=== PATIENT | female | born 1995 | race Hispanic/Latino ===

== ENCOUNTER 2020-08-25 11:05 | Emergency (ER) | payer SELFPAY ==
--- NOTE | 2020-08-25 11:39 | RAD ---
Exam: Chest one view HISTORY:Shortness of breath Comparison: None FINDINGS: Cardiac silhouette:There is cardiomegaly. There are postoperative sternotomy changes. Aorta: Unremarkable Pulmonary vessels: Normal Costophrenic angles: Clear LUNGS: There appears to be postsurgical change in the right hemithorax. Dense consolidation along the right paratracheal region which may represent postsurgical change. Post obstructive atelectasis or pneumonia cannot be excluded. Correlation with surgical history and comparison with prior imaging wou ld be beneficial. If prior imaging is not available, consider CT. Pneumothorax: None Osseous abnormalities: There appear to be chronic changes along the posterior right hemithorax. There does appear to be rightward curvature the upper thoracic spine. IMPRESSION: 1. Postsurgical changes in the right hemithorax. There is dense consolidation of what is presumed to be the right upper lobe. There is rightward curvature of the thoracic spine. Consolidation may represent postsurgical change. Post obstructive atelectasis and/or pneumonia cannot be excluded. Wyatt tional imaging if clinically warranted.
[2020-08-25 11:44] LABS: #Basophils 0.1 thou/uL (0.0-0.2); #Monocytes 0.4 thou/uL (0.11-0.59); #Neutrophils 2.8 thou/uL (1.40-6.50); %Basophils 1.4 % (0.0-1.0); %Lymphocytes 23.7 % (21.0-51.0); Hemoglobin 14.4 g/dL (12.0-16.0); Mean Corpuscular HGB CONC 32.2 g/dL (32.0-36.0); Mean Corpuscular Hemoglobin 25.5 pg (27.0-31.0); Mean Corpuscular Volume 79.1 fL (78.0-98.0); Mean Platelet Volume 9.7 fL (7.4-10.4); Platelet Count 193 thou/uL (130-400); Red Blood Cell (RBC) Count 5.65 mill/uL (4.20-5.40); White Blood Cell (WBC) Count 4.4 thou/uL (4.8-10.8)
[2020-08-25 12:04] LABS: ALT (SGPT) 20 U/L (8-55); AST (SGOT) 31 U/L (5-34); Albumin 4.6 g/dL (3.5-5.0); Alkaline Phosphatase 65 U/L (40-110); Anion Gap 16 mmol/L (10-20); BUN (Urea Nitrogen) 8 mg/dL (7.0-18.7); Bilirubin, Total 0.4 mg/dL (0.2-1.2); Calc. Creatinine Clearance 0 mL/min (70-130); Calcium 9.2 mg/dL (7.8-10.44); Carbon Dioxide 19 mmol/L (22-29); Chloride 107 mmol/L (98-107); Globulin 3.6 g/dL (2.4-3.5); Glucose 85 mg/dL (70-105); Potassium 4.4 mmol/L (3.5-5.1); Protein, Total 8.2 g/dL (6.0-8.3); Sodium 138 mmol/L (136-145)
[2020-08-25 12:50] LABS: Bacteria/HPF None Seen HPF (None Seen); Bilirubin Negative (Negative); Blood, Urine Negative (Negative); Clarity Clear (Clear); Glucose, Urine (Dipstick) Normal (Negative); Ketone, Urine 10 mg/dL (Negative); Leukocyte 75 Leu/uL (Negative); Mucous/LPF 1+ LPF (<2+); Nitrite Negative (Negative); Protein, Urine (Dipstick) 20 mg/dL (Neg-Trace); RBC/HPF 0-3 HPF (0-3); Specific Gravity, Urine 1.026 (1.002-1.036); Squamous Epithelial 0-3 HPF (0-3); Urobilinogen Normal mg/dL (Less than 2); WBC/HPF 0-3 HPF (0-3)
[2020-08-25 12:53] LABS: Pregnancy Test - Urine (BHCG) Negative (Negative); Pregu Control Background? CLEAR/WHITE (CLR/WHITE); Pregu Control Bar Appear? YES (CONTROL BAR); Specific Gravity 1.026 (1.002-1.036)
[2020-08-25] MEDS ORDERED: Iopamidol-370 76% 500 ML 1 ML ONE (13:27)
[2020-08-25] MEDS ORDERED: Ketorolac Tromethamine 30 MG/ML VIAL ONE (14:09)
--- NOTE | 2020-08-25 14:57 | CT ---
CTA Angio Chest W WO Con 08/25/2020 1:30 PM Indication: History of congenital heart disease with multiple surgeries with substernal chest pain a nd shortness of breath Technique: Multiple CTA images were obtained of the thorax with IV contrast. 3-D rendering: MIP emilia nstructed images were created and reviewed. Comparison: No relevant prior studies available. Findings: Pulmonary arteries: The right main pulmonary artery is fed via a conduit from the right superior rosaura a cava. The left pulmonary artery is fed via the inferior vena cava and a conduit from the left brachiocephalic vein. The left pulmonary artery is not opacified due to the contrast being injected w ithin the right upper extremity. There is contrast and blood mixing in the right pulmonary arterial tree makes evaluation for PE difficult. Heart and Aorta: There is an enlarged left atrium that does appear to communicate with a prominent m idline left ventricle. There is a diminutive right ventricle with a ventricular septal defect. The ascending aorta is ectatic measuring 4.1 cm. The right and left main coronary arteries originate from the right aortic cusp on image 31 of series 3. These appear to opacify normally. There are midline sternotomy changes. Mediastinum:No enlarged lymph nodes postoperative changes above Lungs:The lungs are clear. No secondary signs for PE is evident. No pulmonary infarction or hemorrhag e is demonstrated. Pleural space: Clear. Upper Abdomen: There is normal orientation within the upper abdomen without evidence of situs invers us. No acute abnormality is evident. 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 Ther e is an additional butterfly vertebra at T10. There is dextro scoliosis of the upper thoracic spine. Soft tissues:No abnormality. Other findings:None. Impression: 1. Findings of congenital heart disease with postoperative correction. The right main pulmonary arter y is fed via conduit from the right superior vena cava whereas the left pulmonary artery is fed via a conduit from the inferior vena cava and left brachiocephalic vein. The contrast opacification withi n the right main pulmonary artery does mixed with unopacified blood making identification of acute pulmonary embolus difficult. There is no opacification of the left main pulmonary artery due to the i njection being within the right upper extremity. There are no secondary signs to suggest presence of pulmonary embolus related to pulmonary hemorrhage, pulmonary infarction or pleural effusion. Recom mend cardiology consultation and consideration for echocardiography with possible improved visualization of the pulmonary arterial outflow tract. Alternatively, catheterization and digital sub traction imaging may be helpful. Possibly nuclear medicine perfusion only evaluation may be helpful for risk stratification. Findings were discussed with Dr. Hickey At 2:45 PM on August 25, 2020. 2. Congenital scoliosis of the thoracic spine.
== END 2020-08-25 15:03 | disposition home or self-care (01) ==
LOC: ERS 11:05
DX: R07.2 Precordial pain (principal); E03.9 Hypothyroidism, unspecified; Z79.899 Other long term (current) drug therapy
CPT/HCPCS: 71045; 71275; 80053; 81003; 81015; 81025; 84484; 85025; 85379; 93005; 94760; 96374; J1885; Q9967

== ENCOUNTER 2021-02-08 09:11 | Emergency (ER) | payer OTHER ==
[2021-02-08] MEDS ORDERED: Morphine 4 MG/ML VIAL ONE (09:29)
[2021-02-08] MEDS ORDERED: Ondansetron PF 4 MG/2 ML Vial ONE (09:29)
[2021-02-08 09:48] LABS: #Eosinphils 0.1 thou/uL (0.0-0.7); #Lymphocytes 1.1 thou/uL (1.20-3.40); #Monocytes 0.3 thou/uL (0.11-0.59); #Neutrophils 2.6 thou/uL (1.40-6.50); %Basophils 0.2 % (0.0-1.0); %Eosinophils 1.9 % (0.0-10.0); %Lymphocytes 27.4 % (21.0-51.0); %Monocytes 6.5 % (0.0-10.0); %Neutrophils 64.1 % (42.0-75.0); Hemoglobin 12.5 g/dL (12.0-16.0); Mean Corpuscular HGB CONC 32.3 g/dL (32.0-36.0); Mean Corpuscular Hemoglobin 25.5 pg (27.0-31.0); Mean Corpuscular Volume 78.9 fL (78.0-98.0); Mean Platelet Volume 8.9 fL (7.4-10.4); Platelet Count 198 thou/uL (130-400); RBC Distribution Width 13.1 % (11.5-14.5); Red Blood Cell (RBC) Count 4.88 mill/uL (4.20-5.40)
[2021-02-08 11:36] LABS: Bilirubin Negative (Negative); Blood, Urine Large (Negative); Glucose, Urine (Dipstick) Negative (Negative); Ketone, Urine Negative (Negative); Leukocyte Negative (Negative); Nitrite Negative (Negative); Protein, Urine (Dipstick) Negative (Neg-Trace); Urobilinogen 0.2 mg/dL (Less than 2); pH, Urine 5.5 (5.0-9.0)
[2021-02-08 11:40] LABS: Clarity Hazy (Clear); Specific Gravity, Urine 1.035 (1.002-1.036)
[2021-02-08 11:41] LABS: Pregnancy Test - Urine (BHCG) Negative (Negative); Pregu Control Background? CLEAR/WHITE (CLR/WHITE); Pregu Control Bar Appear? YES (CONTROL BAR); Specific Gravity 1.035 (1.002-1.036)
[2021-02-08 11:43] LABS: Bacteria/HPF Rare-Few HPF (None Seen)
[2021-02-08] MEDS ORDERED: Ketorolac Tromethamine 30 MG/ML VIAL ONE (13:53)
[2021-02-11 15:17] LABS: Chlamydia by PCR Not Detected (NotDetected); GC by PCR Not Detected (NotDetected)
== END 2021-02-08 14:25 | disposition home or self-care (01) ==
LOC: ERS 09:11
DX: N83.202 Unspecified ovarian cyst, left side (principal); N92.0 Excessive and frequent menstruation with regular cycle; E03.9 Hypothyroidism, unspecified; Z79.899 Other long term (current) drug therapy; Z79.82 Long term (current) use of aspirin
CPT/HCPCS: 76856; 81003; 81015; 81025; 85025; 87491; 87591; 93976; 96374; 96375; J1885; J2270; J2405

== ENCOUNTER 2021-02-25 23:40 | Emergency (ER) | payer OTHER | END 2021-02-26 00:26 | disposition home or self-care (01) | LOC: ERS 23:40 | DX: S60.444A External constriction of right ring finger, initial encounter (principal); R60.0 Localized edema; E03.9 Hypothyroidism, unspecified; W49.04XA Ring or other jewelry causing external constriction, initial encounter | CPT/HCPCS: 99283 ==

== ENCOUNTER 2021-08-17 12:11 | Observation (INO) | payer OTHER ==
[2021-08-17 12:53] LABS: #Eosinphils 0.1 thou/uL (0.0-0.7); #Monocytes 0.3 thou/uL (0.11-0.59); #Neutrophils 3.2 thou/uL (1.40-6.50); %Basophils 0.1 % (0.0-1.0); %Eosinophils 1.2 % (0.0-10.0); %Lymphocytes 22.1 % (21.0-51.0); %Monocytes 7.4 % (0.0-10.0); %Neutrophils 69.2 % (42.0-75.0); Hemoglobin 12.6 g/dL (12.0-16.0); Mean Corpuscular Hemoglobin 25.8 pg (27.0-31.0); Mean Corpuscular Volume 78.1 fL (78.0-98.0); Mean Platelet Volume 9.2 fL (7.4-10.4); Platelet Count 188 thou/uL (130-400); RBC Distribution Width 13.7 % (11.5-14.5); Red Blood Cell (RBC) Count 4.88 mill/uL (4.20-5.40); White Blood Cell (WBC) Count 4.6 thou/uL (4.8-10.8)
[2021-08-17 13:12] LABS: ALT (SGPT) 15 U/L (8-55); AST (SGOT) 18 U/L (5-34); Albumin 4.2 g/dL (3.5-5.0); Alkaline Phosphatase 66 U/L (40-110); Anion Gap 12 mmol/L (10-20); BUN (Urea Nitrogen) 12 mg/dL (7.0-18.7); Bilirubin, Total 0.4 mg/dL (0.2-1.2); Calc. Creatinine Clearance 0 mL/min (70-130); Calcium 9.3 mg/dL (7.8-10.44); Carbon Dioxide 22 mmol/L (22-29); Chloride 107 mmol/L (98-107); Globulin 3.5 g/dL (2.4-3.5); Glucose 82 mg/dL (70-105); Potassium 3.8 mmol/L (3.5-5.1); Protein, Total 7.7 g/dL (6.0-8.3); Sodium 137 mmol/L (136-145)
[2021-08-17] MEDS ORDERED: Ondansetron ODT 4 MG TAB PO PRN (14:42)
[2021-08-17] MEDS ORDERED: Acetaminophen 325 MG TAB PO PRN (14:42)
[2021-08-17 15:01] LABS: BHCG - Serum Negative (NEGATIVE); Pregs Control Background? CLEAR/WHITE (CLR/WHITE); Pregs Control Bar Appear? YES (CONTROL BAR)
[2021-08-17 15:09] LABS: Acetaminophen Less than 6.0 mcg/mL (10.0-30.0); Alcohol Less than 10 mg/dL (Less than 10); Salicylate Less than 8.0 mg/dL (15.0-30.0)
[2021-08-17 16:09] LABS: Troponin I Less than 0.010 ng/mL (< 0.028)
[2021-08-17 17:20] LABS: SARS-CoV-2 NAA Rapid Test Not Detected (NotDetected)
[2021-08-17 17:50] VITALS: BMI 26.3
[2021-08-17 18:16] LABS: Free T4 (Free Thyroxine) 0.72 ng/dL (0.70-1.48)
[2021-08-18 04:55] LABS: #Eosinphils 0.1 thou/uL (0.0-0.7); #Lymphocytes 1.6 thou/uL (1.20-3.40); #Monocytes 0.5 thou/uL (0.11-0.59); #Neutrophils 2.9 thou/uL (1.40-6.50); %Eosinophils 1.4 % (0.0-10.0); %Lymphocytes 31.4 % (21.0-51.0); %Monocytes 9.7 % (0.0-10.0); %Neutrophils 57.5 % (42.0-75.0); Hemoglobin 12.7 g/dL (12.0-16.0); Mean Corpuscular HGB CONC 32.2 g/dL (32.0-36.0); Mean Corpuscular Hemoglobin 25.2 pg (27.0-31.0); Mean Corpuscular Volume 78.5 fL (78.0-98.0); Mean Platelet Volume 8.8 fL (7.4-10.4); Platelet Count 183 thou/uL (130-400); RBC Distribution Width 13.8 % (11.5-14.5); Red Blood Cell (RBC) Count 5.03 mill/uL (4.20-5.40)
[2021-08-18 05:39] LABS: Anion Gap 14 mmol/L (10-20); BUN (Urea Nitrogen) 11 mg/dL (7.0-18.7); Calc. Creatinine Clearance 111 mL/min (70-130); Carbon Dioxide 19 mmol/L (22-29); Chloride 107 mmol/L (98-107); Glucose 85 mg/dL (70-105); Potassium 3.8 mmol/L (3.5-5.1); Sodium 136 mmol/L (136-145)
[2021-08-18] MEDS ORDERED: Levothyroxine Sodium 125 MCG TAB PO SCH (06:00)
[2021-08-18] MEDS ORDERED: Aspirin 81 mg Enteric Coated Tablet PO SCH (09:00)
[2021-08-18] MEDS ORDERED: Amlodipine 5 MG TAB PO SCH (09:00)
[2021-08-18 17:04] VITALS: BP 125/63; TEMP 98.1
== END 2021-08-18 17:07 | disposition home or self-care (01) ==
LOC: ERS 12:11 → 2SW 14:07
PROVIDERS: ADMIT Family Medicine; ATTEND Nurse Practitioner Family
DX: R06.09 Other forms of dyspnea (principal); R07.89 Other chest pain; E03.9 Hypothyroidism, unspecified; I10 Essential (primary) hypertension; M41.9 Scoliosis, unspecified; Z87.74 Personal history of (corrected) congenital malformations of heart and circulatory system; Z79.82 Long term (current) use of aspirin; Z79.899 Other long term (current) drug therapy; Z20.822 Contact with and (suspected) exposure to COVID-19
CPT/HCPCS: 36415; 71045; 80048; 80053; 80307; 83880; 84439; 84443; 84481; 84484; 84703; 85025; 85379; 93005; 93306; 94760; G0378; U0002

== ENCOUNTER 2021-09-04 13:59 | Emergency (ER) | payer OTHER ==
[2021-09-04 14:52] LABS: #Eosinphils 0.1 thou/uL (0.0-0.7); #Lymphocytes 1.3 thou/uL (1.20-3.40); #Monocytes 0.3 thou/uL (0.11-0.59); %Eosinophils 1.4 % (0.0-10.0); %Lymphocytes 19.4 % (21.0-51.0); %Monocytes 5.1 % (0.0-10.0); %Neutrophils 74.2 % (42.0-75.0); Hemoglobin 12.5 g/dL (12.0-16.0); Mean Corpuscular HGB CONC 33.2 g/dL (32.0-36.0); Mean Corpuscular Volume 78.4 fL (78.0-98.0); Mean Platelet Volume 8.7 fL (7.4-10.4); Platelet Count 207 thou/uL (130-400); RBC Distribution Width 14.2 % (11.5-14.5); Red Blood Cell (RBC) Count 4.81 mill/uL (4.20-5.40); White Blood Cell (WBC) Count 6.7 thou/uL (4.8-10.8)
[2021-09-04 15:04] LABS: ALT (SGPT) 20 U/L (8-55); AST (SGOT) 23 U/L (5-34); Albumin 4.3 g/dL (3.5-5.0); Alkaline Phosphatase 63 U/L (40-110); Anion Gap 13 mmol/L (10-20); BUN (Urea Nitrogen) 10 mg/dL (7.0-18.7); Bilirubin, Total 0.4 mg/dL (0.2-1.2); Calc. Creatinine Clearance 0 mL/min (70-130); Calcium 9.7 mg/dL (7.8-10.44); Carbon Dioxide 22 mmol/L (22-29); Chloride 105 mmol/L (98-107); Globulin 3.6 g/dL (2.4-3.5); Glucose 95 mg/dL (70-105); Potassium 4.2 mmol/L (3.5-5.1); Protein, Total 7.9 g/dL (6.0-8.3); Sodium 136 mmol/L (136-145)
== END 2021-09-04 16:53 | disposition home or self-care (01) ==
LOC: ERS 13:59
DX: O20.9 Hemorrhage in early pregnancy, unspecified (principal); Z3A.01 Less than 8 weeks gestation of pregnancy; O10.011 Pre-existing essential hypertension complicating pregnancy, first trimester; O99.281 Endocrine, nutritional and metabolic diseases complicating pregnancy, first trimester
CPT/HCPCS: 36415; 76856; 80053; 84702; 85025; 86900; 86901